=== PATIENT | female | born 1940 | race Caucasian/White ===

== ENCOUNTER 2016-09-24 09:25 | Day surgery (SDC) | payer MEDICARE, BC ==
[~2016-09-24 09:25] MED LIST: PROPOFOL INJ 200 MG/20 ML VIAL IV ONE
[2016-09-24 10:45] VITALS: BP 136/64
--- NOTE | 2016-09-24 12:28 | Operative Report ---
Operative Report DATE OF SURGERY: 09/24/16 Operative Report: The risks benefits and alternatives of the procedure explained to the patient in detail and informed consent is obtained that GIF Olympus video scope was inserted into the patient's mouth and hypopharynx the esophagus is identified intubated and insufflated the scope was then advanced through the esophagus stomach and duodenum retroflexion maneuver is done the esophagus stomach and first and second portions of the duodenum examined PREOPERATIVE DIAGNOSIS: Heme positive stool. Previous colonoscopy apparently negative POSTOPERATIVE DIAGNOSIS: Gastritis status post biopsy rule out Helicobacter pylori OPERATION: EGD with biopsy SURGEON: TONO RECIO ANESTHESIA: LMAC TISSUE REMOVED OR ALTERED: Gastric mucosal specimens obtained, rule out Helicobacter pylori COMPLICATIONS: None. ESTIMATED BLOOD LOSS: none. INTRAOPERATIVE FINDINGS: Esophagus normal. Gastric erosions/gastritis with some old heme present. Duodenal bulb normal no ulcer. First and second portion of the duodenum normal PROCEDURE: Patient tolerated the procedure well. No immediate postprocedure complications are noted. Patient is discharged in good condition. Discharge date 09/24/2016. Discharge diet: Regular. Discharge activity: Regular. 2-3 week follow-up to discuss findings. Patient is instructed to call the office or proceed to the emergency room should there be any further problems or questions. We'll await on biopsies.
== END 2016-09-24 10:35 | disposition home or self-care (01) ==
LOC: END 09:25
PROVIDERS: ATTEND Internal Medicine Gastroenterology
PROC: 0DB68ZX Excision of Stomach, Via Natural or Artificial Opening Endoscopic, Diagnostic (ICD-10-PCS; principal; 2016-09-24 11:30)
DX: K29.50 Unspecified chronic gastritis without bleeding (principal); K57.30 Diverticulosis of large intestine without perforation or abscess without bleeding; Z79.01 Long term (current) use of anticoagulants; Z79.82 Long term (current) use of aspirin; Z79.899 Other long term (current) drug therapy; Z79.51 Long term (current) use of inhaled steroids
CPT/HCPCS: 43239; 88342 ×2; 88305 ×2; J2704; 740

== ENCOUNTER 2017-02-18 06:52 | Day surgery (SDC) | payer MEDICARE, BC ==
[2017-02-18] MEDS ORDERED: PROPOFOL INJ 200 MG/20 ML VIAL IV ONE (07:19)
[2017-02-18 09:05] VITALS: BP 147/50
--- NOTE | 2017-02-18 13:00 | Operative Report ---
Operative Report DATE OF SURGERY: 02/18/17 Operative Report: The risks, benefits and alternatives of the procedure including risks of bleeding, perforation requiring surgery are explained to the patient in detail and informed consent was obtained. Patient was taken back to the endoscopy suite and placed in the left, lateral decubital position. Timeout was called. Propofol medications administered. A rectal examination was done which did not reveal any masses, tears or fissures. An Olympus videoscope was inserted into the patient's rectum. The scope was then carefully advanced all the way to the cecum. The cecum was identified by the usual anatomical landmarks including the ileocecal valve as well as the appendiceal office. Photodocumentation was obtained. The scope was then sequentially pulled back via the various segments of the colon including the ascending colon, hepatic flexure, transverse colon, splenic flexure, descending colon and finding to the rectosigmoid portions of the colon. Retroflexion maneuvers performed. PREOPERATIVE DIAGNOSIS: Colorectal cancer screening POSTOPERATIVE DIAGNOSIS: Colon polyp that was noted and removed via biopsy forceps. Diverticulosis. Internal hemorrhoids OPERATION: Colonoscopy with biopsy SURGEON: TONO RECIO ANESTHESIA: LMAC TISSUE REMOVED OR ALTERED: As described above. COMPLICATIONS: None. ESTIMATED BLOOD LOSS: None. INTRAOPERATIVE FINDINGS: As described above. PROCEDURE: Patient tolerated the procedure well. No immediate postprocedure complications are noted. Patient discharged in good condition. Discharge date 02/18/2017. Discharge diet: Regular. Discharge activity: Regular. 2-3 week follow-up to discuss findings. Patient is instructed to call the office or proceed to the emergency room should there be any further problems or questions. We will wait on pathology. 3-5 year surveillance colonoscopy depending on the pathology of the polyp.
== END 2017-02-18 08:50 | disposition home or self-care (01) ==
LOC: END 06:52
PROVIDERS: ATTEND Internal Medicine Gastroenterology
PROC: 0DBK8ZX Excision of Ascending Colon, Via Natural or Artificial Opening Endoscopic, Diagnostic (ICD-10-PCS; principal; 2017-02-18 08:00)
DX: Z12.11 Encounter for screening for malignant neoplasm of colon (principal); K57.30 Diverticulosis of large intestine without perforation or abscess without bleeding; K64.8 Other hemorrhoids; I20.9 Angina pectoris, unspecified; I11.0 Hypertensive heart disease with heart failure; I50.9 Heart failure, unspecified; J44.9 Chronic obstructive pulmonary disease, unspecified; M19.90 Unspecified osteoarthritis, unspecified site; I48.91 Unspecified atrial fibrillation; I25.2 Old myocardial infarction; Z85.828 Personal history of other malignant neoplasm of skin
CPT/HCPCS: 45380; 88305 ×2; J2704; 810

== ENCOUNTER → 2017-03-10 | Outpatient (CLI) | payer MEDICARE, BC | LOC: LAB 07:41 | PROVIDERS: ATTEND Ophthalmology | DX: D48.5 Neoplasm of uncertain behavior of skin (principal) | CPT/HCPCS: 88305 ==

== ENCOUNTER 2017-07-05 13:31 | Emergency (ER) | payer MEDICARE, BC ==
--- NOTE | 2017-07-05 14:06 | ER Document Report ---
ED Medical Screen (RME) - General Chief Complaint: Fall Stated Complaint: FALL/HEAD PAIN Time Seen by Provider: 07/05/17 14:03 Notes: 77-year-old female on Xarelto here status post fall 6 days ago. She states that she slipped on the ice and fell onto her left side. Initially she did not have any pain but several days later started to have a left-sided headache arm pain and hip pain along with bruising. She is here because she is afraid of possible brain bleed. She has been able to walk without difficulty. EXAM Ecchymosis of the distal left arm Ecchymosis of the superior lateral left thigh Mild soft tissue swelling and tenderness to palpation of the left lateral occipital scalp TRAVEL OUTSIDE OF THE [place] IN LAST 30 DAYS: No - Related Data Allergies/Adverse Reactions: adhesive [Adhesive] Allergy (Severe, Verified 07/05/17 13:32) ITCH, RASH Past Medical History - Social History Chew tobacco use (# tins/day): No Frequency of alcohol use: None Drug Abuse: None - Past Medical History Cardiac Medical History: Reports: Hx Hypertension Denies: Hx Congestive Heart Failure, Hx Coronary Artery Disease, Hx Heart Attack, Hx Heart Murmur Pulmonary Medical History: Reports: Hx Asthma Denies: Hx Bronchitis, Hx COPD, Hx Pneumonia, Hx Tuberculosis Neurological Medical History: Denies: Hx Cerebrovascular Accident, Hx Seizures Renal/ Medical History: Denies: Hx Peritoneal Dialysis GI Medical History: Denies: Hx Hepatitis, Hx Hiatal Hernia, Hx Ulcer Musculoskeltal Medical History: Reports Hx Arthritis - hand Infectious Medical History: Denies: Hx Hepatitis Past Surgical History: Reports: Hx Hysterectomy. Denies: Hx Mastectomy, Hx Open Heart Surgery, Hx Pacemaker - Immunizations Hx Diphtheria, Pertussis, Tetanus Vaccination: Yes Physical Exam - Vital signs Vitals: Temp Pulse Resp BP Pulse Ox 98.0 F 77 20 133/58 H 96 07/05/17 13:39 07/05/17 13:39 07/05/17 13:39 07/05/17 13:39 07/05/17 13:39 Course - Vital Signs Vital signs: Temp Pulse Resp BP Pulse Ox 98.0 F 77 20 133/58 H 96 07/05/17 13:39 07/05/17 13:39 07/05/17 13:39 07/05/17 13:39 07/05/17 13:39
--- NOTE | 2017-07-05 14:36 | RADIOLOGY REPORT (SQ) ---
EXAM DESCRIPTION: HIP LEFT AP/LATERAL COMPLETED DATE/TIME: 07/05/2017 2:28 pm REASON FOR STUDY: fall, superior lateral thigh pain COMPARISON: None. NUMBER OF VIEWS: Two views. TECHNIQUE: AP pelvis and additional frog-leg view of the left hip. LIMITATIONS: None. FINDINGS: MINERALIZATION: Normal. LEFT HIP: No fracture or dislocation. No lytic or blastic lesions. No joint space narrowing. Minim al acetabular rim bony spurring. RIGHT HIP: No fracture or dislocation. No lytic or blastic lesions. No joint space narrowing. Mini mal acetabular rim bony spurring. PUBIS AND ISCHIUM: No fracture. PELVIS: No fracture. SACRUM: No fracture or dislocation. No worrisome bone lesions. LOWER LUMBAR SPINE: L5-S1 facet arthropathy SOFT TISSUES: No findings. OTHER: No other significant finding. IMPRESSION: No acute fracture or malalignment TECHNICAL DOCUMENTATION: JOB ID: [id number] [employer]- All Rights Reserved
--- NOTE | 2017-07-05 14:39 | RADIOLOGY REPORT (SQ) ---
EXAM DESCRIPTION: CT HEAD WITHOUT COMPLETED DATE/TIME: 07/05/2017 2:30 pm REASON FOR STUDY: on xarelto, s/p fall COMPARISON: None. TECHNIQUE: Axial images acquired through the brain without intravenous contrast. Images reviewed wi th bone, brain and subdural windows. Images stored on PACS. All CT scanners at this facility use dose modulation, iterative reconstruction, and/or weight based d osing when appropriate to reduce radiation dose to as low as reasonably achievable (ALARA). [facility]: Dose Right [facility]: CareDose [facility]: Dose Right [facility]: Teradose 4D [facility]: Third Brigade RADIATION DOSE: 64.6 mGy. LIMITATIONS: None. FINDINGS: VENTRICLES: Normal size and contour. CEREBRUM: No masses. No hemorrhage. No midline shift. No evidence for acute infarction. Normal gra y/white matter differentiation. No areas of low density in the white matter. CEREBELLUM: No masses. No hemorrhage. No alteration of density. No evidence for acute infarction. EXTRAAXIAL SPACES: No fluid collections. No masses. ORBITS AND GLOBE: No intra- or extraconal masses. Normal contour of globe without masses. CALVARIUM: No fracture. PARANASAL SINUSES: No fluid or mucosal thickening. SOFT TISSUES: No mass or hematoma. OTHER: No other significant finding. IMPRESSION: NORMAL BRAIN CT WITHOUT CONTRAST. EVIDENCE OF ACUTE STROKE: NO. COMMENT: Quality ID # [id number]: Final reports with documentation of one or more dose reduction techniques (e.g., Automated exposure control, adjustment of the mA and/or kV according to patient size, use of iterative reconstruction technique) TECHNICAL DOCUMENTATION: JOB ID: [id number] [employer]- All Rights Reserved
--- NOTE | 2017-07-05 14:40 | RADIOLOGY REPORT (SQ) ---
EXAM DESCRIPTION: HUMERUS LEFT COMPLETED DATE/TIME: 07/05/2017 2:28 pm REASON FOR STUDY: fall, distal humerus pain COMPARISON: None. NUMBER OF VIEWS: Two views. TECHNIQUE: Two radiographic images were acquired of the left humerus to include elbow and shoulder i n at least one projection. LIMITATIONS: None. FINDINGS: MINERALIZATION: Normal. BONES: No acute fracture or dislocation. No worrisome bone lesions. SOFT TISSUES: No obvious swelling or foreign body. OTHER: No other significant finding. IMPRESSION: NEGATIVE STUDY OF THE LEFT HUMERUS. NO RADIOGRAPHIC EVIDENCE OF ACUTE INJURY. TECHNICAL DOCUMENTATION: JOB ID: [id number] [email or web address]- All Rights Reserved
--- NOTE | 2017-07-05 15:04 | ER Document Report ---
ED Fall - General Chief Complaint: Fall Stated Complaint: FALL/HEAD PAIN Time Seen by Provider: 07/05/17 14:03 Mode of Arrival: Ambulatory Information source: Patient Notes: Patient is a 77-year-old female on Julieta who presents to the ER today 6 days post fall on the ice from the snowstorm we had recently. Patient states that she fell outside in her driveway while she was trying to walk her dog, hurting her left hip, left arm and hitting her head. She did not lose consciousness, she denies any nausea or vomiting. She states that she has had a mild headache and some nosebleeds since falling which made her very nervous. states that she has been acting normally. She admits to a small amount of neck pain that began 3-4 Days ago. TRAVEL OUTSIDE OF THE [place] IN LAST 30 DAYS: No - Related data Allergies/Adverse Reactions: adhesive [Adhesive] Allergy (Severe, Verified 07/05/17 13:32) ITCH, RASH Past Medical History - General Information source: Patient - Social History Smoking Status: Never Smoker Chew tobacco use (# tins/day): No Frequency of alcohol use: None Drug Abuse: None Family History: Reviewed & Not Pertinent Patient has suicidal ideation: No Patient has homicidal ideation: No - Past Medical History Cardiac Medical History: Reports: Hx Hypertension Denies: Hx Congestive Heart Failure, Hx Coronary Artery Disease, Hx Heart Attack, Hx Heart Murmur Pulmonary Medical History: Reports: Hx Asthma Denies: Hx Bronchitis, Hx COPD, Hx Pneumonia, Hx Tuberculosis Neurological Medical History: Denies: Hx Cerebrovascular Accident, Hx Seizures Renal/ Medical History: Denies: Hx Peritoneal Dialysis GI Medical History: Denies: Hx Hepatitis, Hx Hiatal Hernia, Hx Ulcer Musculoskeltal Medical History: Reports Hx Arthritis - hand Infectious Medical History: Denies: Hx Hepatitis Past Surgical History: Reports: Hx Hysterectomy. Denies: Hx Mastectomy, Hx Open Heart Surgery, Hx Pacemaker - Immunizations Hx Diphtheria, Pertussis, Tetanus Vaccination: Yes Hx Pneumococcal Vaccination: 03/24/16 Review of Systems - Review of Systems Constitutional: No symptoms reported EENT: No symptoms reported Cardiovascular: No symptoms reported Respiratory: No symptoms reported Gastrointestinal: No symptoms reported Genitourinary: No symptoms reported Female Genitourinary: No symptoms reported Musculoskeletal: See HPI Skin: See HPI Hematologic/Lymphatic: No symptoms reported Neurological/Psychological: See HPI Physical Exam - Vital signs Vitals: Temp Pulse Resp BP Pulse Ox 98.0 F 77 20 133/58 H 96 07/05/17 13:39 07/05/17 13:39 07/05/17 13:39 07/05/17 13:39 07/05/17 13:39 - Notes Notes: PHYSICAL EXAMINATION: GENERAL: Well-appearing and in no acute distress. HEAD: Atraumatic, normocephalic. EYES: Pupils equal round and reactive to light, extraocular movements intact, sclera anicteric, conjunctiva are normal. NECK: Normal range of motion, supple without lymphadenopathy LUNGS: CTAB and equal. No wheezes rales or rhonchi. HEART: Regular rate and rhythm without murmurs ABDOMEN: Soft, no tenderness. No guarding, no rebound BACK: no vertebral tenderness, normal ROM GI/: no CVA tenderness EXTREMITIES: Tender to palpation over left lateral arm, proximal to the elbow, otherwise normal range of motion, no pitting edema. No cyanosis. NEUROLOGICAL: Cranial nerves grossly intact. Normal sensory/motor exams. Good and equal strength bilaterally, Kernig and Brudzinski's signs negative, Romberg' s test normal, normal heel to kruger testing PSYCH: Normal mood, normal affect. SKIN: Warm, Dry, normal turgor, ecchymosis noted to the left lateral arm proximal to the elbow, Course - Re-evaluation Re-evalutation: 07/05/17 18:08 Patient is neurologically intact. CT of the head, left humerus x-ray and left hip x-ray negative for any acute pathology. Patient will be sent home with small dose of a muscle relaxer for some neck pain she admits to. - Vital Signs Vital signs: Temp Pulse Resp BP Pulse Ox 98.1 F 71 20 123/52 L 94 07/05/17 15:45 07/05/17 15:45 07/05/17 15:45 07/05/17 15:45 07/05/17 15:45 Discharge - Discharge Clinical Impression: On anticoagulant therapy, Left arm pain, Left hip pain Fall Qualifiers: Encounter type: initial encounter Qualified Code(s): W19.XXXA - Unspecified fall, initial encounter Head injury Qualifiers: Encounter type: initial encounter Qualified Code(s): S09.90XA - Unspecified injury of head, initial encounter Condition: Stable Disposition: HOME, SELF-CARE Additional Instructions: Return immediately for any new or worsening symptoms. Follow up with primary care provider, call tomorrow to make followup appointment. Prescriptions: Cyclobenzaprine HCl [Flexeril 5 mg Tablet] 5 mg PO TID #15 tablet Referrals: ROSA M SWENSON MD [Primary Care Provider] - Follow up as needed
[2017-07-05 15:46] VITALS: BP 123/52
== END 2017-07-05 15:46 | disposition home or self-care (01) ==
LOC: ER 13:31
DX: S09.90XA Unspecified injury of head, initial encounter (principal); M79.602 Pain in left arm; M25.552 Pain in left hip; R51 Headache; M54.2 Cervicalgia; W00.0XXA Fall on same level due to ice and snow, initial encounter; Z79.01 Long term (current) use of anticoagulants
CPT/HCPCS: 70450; 99284

== ENCOUNTER 2017-09-06 10:38 | Inpatient (IN) | payer MEDICARE, BC ==
--- NOTE | 2017-09-06 11:08 | ER Document Report ---
ED Medical Screen (RME) - General Chief Complaint: Chest Pain Stated Complaint: CHEST PAIN Time Seen by Provider: 09/06/17 10:56 Mode of Arrival: Wheelchair Information source: Patient Notes: Patient is a 77-year-old female with a history of triple bypass surgery in September 2013 presents to the emergency department complaining of chest pain onset around 0330 this morning. Patient states that the pain is located midsternal that radiates into her back and left shoulder. Patient describes the pain as constant and achey. Patient also complains of diaphoresis and weakness. Patient denies dizziness or nausea. Patient currently takes Xarelto and states that she was unable to take any of her medications this morning GENERAL: Alert, interacts well. No acute distress. HEAD: Normocephalic, Atraumatic. HEART: Afib with RVR. ABDOMEN: Soft, non-tender. Non-distended. Bowel sounds present in all 4 quadrants. EXTREMITIES: Moves all four extremities spontaneously. 2+ radial pulses bilaterally. PSYCH: Normal affect, normal mood. I have greeted and performed a rapid initial assessment of this patient. A comprehensive ED assessment and evaluation of the patient, analysis of test results and completion of the medical decision making process will be conducted by additional ED providers. TRAVEL OUTSIDE OF THE [place] IN LAST 30 DAYS: No - Related Data Allergies/Adverse Reactions: adhesive [Adhesive] Allergy (Severe, Verified 09/06/17 10:43) ITCH, RASH Past Medical History - General Information source: Patient - Social History Chew tobacco use (# tins/day): No Frequency of alcohol use: None Drug Abuse: None - Past Medical History Cardiac Medical History: Reports: Hx Hypertension Denies: Hx Congestive Heart Failure, Hx Coronary Artery Disease, Hx Heart Attack, Hx Heart Murmur Pulmonary Medical History: Reports: Hx Asthma Musculoskeltal Medical History: Reports Hx Arthritis - hand Past Surgical History: Reports: Hx Hysterectomy - Immunizations Hx Diphtheria, Pertussis, Tetanus Vaccination: Yes Physical Exam - Vital signs Vitals: Temp Pulse Resp BP Pulse Ox 97.8 F 126 H 20 104/80 96 09/06/17 10:49 09/06/17 10:49 09/06/17 10:49 09/06/17 10:49 09/06/17 10:49 Course - Vital Signs Vital signs: Temp Pulse Resp BP Pulse Ox 97.8 F 126 H 20 135/82 H 96 09/06/17 10:49 09/06/17 10:49 09/06/17 10:49 09/06/17 11:07 09/06/17 10:49 Stacia Documentation - Scribe Written by Stacia:: Stacia Cat, 09/06/2017 11:09 acting as scribe for :: Nahid
[2017-09-06] MEDS ORDERED: DILTIAZEM HCL INJ 25 MG/5 ML VIAL IV ONE (11:44)
[2017-09-06] MEDS ORDERED: DILTIAZEM HCL/D5W 125 MG/125 ML RTUINJ IV PRN (11:44)
[2017-09-06 11:52] LABS: ABSOLUTE LYMPHOCYTES (AUTO) 1.6 10^3/uL (0.5-4.7); ABSOLUTE MONOCYTES (AUTO) 0.6 10^3/uL (0.1-1.4); ABSOLUTE NEUT (AUTO) 9.4 10^3/uL (1.7-8.2); BASOPHILS % (AUTO) 0.2 % (0-2); EOSINOPHILS % (AUTO) 0.2 % (0-6); HEMATOCRIT 42.4 % (36.0-47.0); LYMPHOCYTES % (AUTO) 13.6 % (13-45); MEAN CORPUSCULAR HEMOGLOBIN 27.7 pg (27.0-33.4); MEAN CORPUSCULAR HGB CONC 33.1 g/dL (32.0-36.0); MEAN CORPUSCULAR VOLUME 84 fl (80-97); PLATELET COUNT 264 10^3/uL (150-450); RED BLOOD COUNT 5.06 10^6/uL (3.72-5.28); RED CELL DISTRIBUTION WIDTH 15.6 % (11.5-14.0); TOTAL CELLS COUNTED % (AUTO) 100 %; WHITE BLOOD COUNT 11.7 10^3/uL (4.0-10.5)
[2017-09-06 12:01] LABS: INTERNATIONAL RATION (INR) 1.76; PROTHROMBIN TIME 21.5 SEC (11.4-15.4)
[2017-09-06 12:02] LABS: PARTIAL THROMBOPLASTIN TIME 46.8 SEC (23.5-35.8)
--- NOTE | 2017-09-06 12:15 | RADIOLOGY REPORT (SQ) ---
EXAM DESCRIPTION: CHEST SINGLE VIEW COMPLETED DATE/TIME: 09/06/2017 11:58 am REASON FOR STUDY: chest pain COMPARISON: CT 12/23/2014 radiograph 08/07/2013 EXAM PARAMETERS: NUMBER OF VIEWS: One view. TECHNIQUE: Single frontal radiographic view of the chest acquired. RADIATION DOSE: NA LIMITATIONS: None. FINDINGS: LUNGS AND PLEURA: No definite infiltrate is seen, but the left hemidiaphragm is indistinct . No infiltrate is seen on the lateral view. MEDIASTINUM AND HILAR STRUCTURES: No masses. Contour normal. HEART AND VASCULAR STRUCTURES: Heart normal in size. Normal vasculature. BONES: No acute findings. HARDWARE: Sternotomy wires. OTHER: No other significant finding. IMPRESSION: Cannot entirely exclude a limited infiltrate the left base. TECHNICAL DOCUMENTATION: JOB ID: [id number] [employer]- All Rights Reserved Reading location - IP/workstation name: [email or web address]
[2017-09-06 12:22] LABS: ALANINE AMINOTRANSFERASE 30 U/L (9-52); ALBUMIN 4.1 g/dL (3.5-5.0); ALKALINE PHOSPHATASE 68 U/L (38-126); ANION GAP 12 (5-19); ASPARTATE AMINO TRANSFERASE 19 U/L (14-36); BILIRUBIN,DIRECT 0.3 mg/dL (0.0-0.4); BILIRUBIN,TOTAL 0.5 mg/dL (0.2-1.3); BLOOD UREA NITROGEN 27 mg/dL (7-20); CALCIUM 9.9 mg/dL (8.4-10.2); CARBON DIOXIDE 27 mmol/L (22-30); CHLORIDE 101 mmol/L (98-107); GLUCOSE 178 mg/dL (75-110); POTASSIUM 4.7 mmol/L (3.6-5.0); TOTAL PROTEIN 7.1 g/dL (6.3-8.2)
[2017-09-06] MEDS ORDERED: DIGOXIN INJ 0.5 MG/2 ML AMPULE IV ONE (12:31)
[2017-09-06 12:34] LABS: NT PRO BNP 1280 pg/mL (<450); TROPONIN I < 0.012 ng/mL
--- NOTE | 2017-09-06 12:49 | ER Document Report ---
ED General - General Chief Complaint: Chest Pain Stated Complaint: CHEST PAIN Time Seen by Provider: 09/06/17 10:56 Mode of Arrival: Wheelchair Notes: Patient says she awakened about 3 AM to go to the bathroom. When she did so, she noticed that she was "hurting in my chest real bad". She felt very weak and sweaty. She noticed that her blood pressure was low and that her heart rate was going very fast. She also felt short of breath. She has a history of paroxysmal atrial fibrillation currently on metoprolol. She is also on Xarelto. Denies nausea or vomiting. No fever or chills. Had a headache earlier in the week but not currently. Patient had three-vessel CABG 2013. TRAVEL OUTSIDE OF THE [place] IN LAST 30 DAYS: No - Related Data Allergies/Adverse Reactions: adhesive [Adhesive] Allergy (Severe, Verified 09/06/17 10:43) ITCH, RASH Past Medical History - General Information source: Patient - Social History Smoking Status: Never Smoker Chew tobacco use (# tins/day): No Frequency of alcohol use: None Drug Abuse: None Family History: Reviewed & Not Pertinent Patient has suicidal ideation: No Patient has homicidal ideation: No - Past Medical History Cardiac Medical History: Reports: Hx Coronary Artery Disease, Hx Hypertension Denies: Hx Congestive Heart Failure, Hx Heart Attack, Hx Heart Murmur Pulmonary Medical History: Reports: Hx Asthma Endocrine Medical History: Reports: Hx Hypothyroidism Musculoskeltal Medical History: Reports Hx Arthritis - hand Past Surgical History: Reports: Hx Hysterectomy - Immunizations Hx Diphtheria, Pertussis, Tetanus Vaccination: Yes Hx Pneumococcal Vaccination: 03/24/16 Review of Systems - Review of Systems Notes: REVIEW OF SYSTEMS: CONSTITUTIONAL : Denies fever. EENT: Denies eye, ear, nose or mouth or throat pain or other symptoms. CARDIOVASCULAR: See HPI. RESPIRATORY: Denies cough, chest congestion, but some shortness of breath. GASTROINTESTINAL: Denies abdominal pain or nausea, vomiting, or diarrhea. GENITOURINARY: Denies difficulty or painful urinating, urinary frequency, blood in urine. MUSCULOSKELETAL: Denies back or neck pain. Denies joint pain or swelling. SKIN: Denies rash or skin lesions. NEUROLOGICAL: Denies LOC or altered mental status. Denies headache. Denies sensory loss or motor deficits. ALL OTHER SYSTEMS REVIEWED AND NEGATIVE. Physical Exam - Vital signs Vitals: Temp Pulse Resp BP Pulse Ox 97.8 F 126 H 20 104/80 96 09/06/17 10:49 09/06/17 10:49 09/06/17 10:49 09/06/17 10:49 09/06/17 10:49 Interpretation: Tachycardic - Notes Notes: PHYSICAL EXAMINATION: GENERAL: Well-appearing, in no acute distress. Anxious. HEAD: Atraumatic, normocephalic. EYES: Pupils equal round and reactive to light, extraocular movements intact. ENT: oropharynx clear without exudates. Moist mucous membranes. NECK: Normal range of motion, supple. LUNGS: Breath sounds clear and equal bilaterally. HEART: Irregularly irregular tachycardia at about 1 20/min. ABDOMEN: Soft, nontender. No guarding or rebound. No masses. BACK: No tenderness throughout entire back. EXTREMITIES: Normal range of motion without pain. NEUROLOGICAL: Normal speech, normal gait. Normal sensory, motor, and reflex exams. Awake, alert, and oriented x3. PSYCH: Normal mood, normal affect. SKIN: Warm, dry, no rashes. Course - Re-evaluation Re-evalutation: 09/06/17 17:14 Patient was given a bolus of Cardizem as well as a drip at 10 mg. Her heart rate began to slow down into the 100-110 area. She does not have any chest pain at this time. I gave a single dose of digoxin 0.25 mg IV. Patient's heart rate slowed down to below 100 and she was stable otherwise. Labs show no evidence of acute cardiac injury. Hospitalist contacted who will admit the patient for further care and management. - Vital Signs Vital signs: Temp Pulse Resp BP Pulse Ox 97.8 F 126 H 22 H 119/60 96 09/06/17 10:49 09/06/17 10:49 09/06/17 16:31 09/06/17 16:31 09/06/17 16:31 - Laboratory Result Diagrams: 09/06/17 11:36 09/06/17 11:36 Laboratory results interpreted by me: 09/06/17 09/06/17 09/06/17 11:36 11:36 11:36 WBC 11.7 H RDW 15.6 H Seg Neutrophils % 81.0 H Absolute Neutrophils 9.4 H PT APTT BUN 27 H Creatinine 1.28 H Est GFR ( Amer) 49 L Est GFR (Non-Af Amer) 40 L Glucose 178 H NT-Pro-B Natriuret Pep 1280 H 09/06/17 11:36 WBC RDW Seg Neutrophils % Absolute Neutrophils PT 21.5 H APTT 46.8 H BUN Creatinine Est GFR ( Amer) Est GFR (Non-Af Amer) Glucose NT-Pro-B Natriuret Pep - Diagnostic Test Radiology results interpreted by me: 09/06/17 17:13 Chest x-ray appears normal to me, although the radiologist does comment that there may be a small left lower lobe infiltrate. - EKG Interpretation by Me Rate: Tachycardia Rhythm: A.Fib Voltage: Consistant with LVH Critical Care Note - Critical Care Note Total time excluding time spent on procedures (mins): 45 Discharge - Discharge Clinical Impression: Atrial fibrillation with rapid ventricular response Condition: Stable Disposition: ADMITTED INPATIENT Admitting Provider: Hospitalist Unit Admitted: [facility], [place]
--- NOTE | 2017-09-06 13:04 | EKG REPORT ---
SEVERITY:- ABNORMAL ECG - ATRIAL FIBRILLATION LEFT ANTERIOR FASCICULAR BLOCK LVH WITH SECONDARY REPOLARIZATION ABNORMALITY : Confirmed by: Eladio Travis MD 06-Sep-2017 13:04:07
[2017-09-06] MEDS ORDERED: ONDANSETRON HCL INJ/PF 4 MG/2 ML SDV IV PRN (14:57)
[2017-09-06] MEDS ORDERED: IPRATROPIUM/ALBUTEROL 0.5-2.5 MG/3 ML AMPUL NEB PRN (14:57)
[2017-09-06] MEDS ORDERED: SPIRONOLACTONE 25 MG TABLET PO SCH (15:15)
[2017-09-06] MEDS ORDERED: LEVALBUTEROL HCL NEB 1.25 MG/3 ML AMPUL NEB PRN (15:21)
[2017-09-06] MEDS ORDERED: LEVOFLOXACIN 750 MG/D5W RTU 750 MG/150 ML RTUPB IV SCH (16:00)
[2017-09-06] MEDS ORDERED: DILTIAZEM HCL 60 MG TABLET PO ONE (16:00)
[2017-09-06] MEDS ORDERED: ASPIRIN 81 MG TABLET, CHEWABLE PO ONE ×2 (16:00→16:30)
[2017-09-06 16:11] LABS: FREE T4 (FREE THYROXINE) 1.48 ng/dL (0.78-2.19)
[2017-09-06 16:25] LABS: THYROID STIMULATING HORMONE 0.82 uIU/mL (0.47-4.68)
[2017-09-06] MEDS ORDERED: LEVOTHYROXINE SODIUM 0.088 MG TABLET PO ONE (16:30)
[2017-09-06] MEDS ORDERED: RIVAROXABAN 10 MG TABLET PO ONE (16:30)
[2017-09-06] MEDS ORDERED: FUROSEMIDE INJ/PF 40 MG/4 ML SDV IV ONE (16:30)
[2017-09-06 17:19] LABS: APPEARANCE,URINE CLEAR; BILIRUBIN,URINE NEGATIVE (NEGATIVE); COLOR,URINE STRAW; GLUCOSE, URINE NEGATIVE (NEGATIVE); KETONES,URINE NEGATIVE (NEGATIVE); LEUKOCYTE ESTERASE,URINE NEGATIVE (NEGATIVE); NITRITE,URINE NEGATIVE (NEGATIVE); PROTEIN,URINE NEGATIVE (NEGATIVE); URINE SPECIFIC GRAVITY 1.005; UROBILINOGEN,URINE NEGATIVE mg/dL (<2.0)
[2017-09-06] MEDS ORDERED: [UNRECOGNIZED DRUG - OTHER] PO SCH (18:00)
[2017-09-06] MEDS ORDERED: VIT D3 PO SCH (18:00)
--- NOTE | 2017-09-06 18:22 | XCELERA REPORT ---
[address] [address] Transthoracic Echocardiogram Report Name: PHILIP SMITH Age: 77 yrs Gender: Female : 1940 Patient Status: Inpatient Patient Location: [place] [address]^A Study Date: 09/06/2017 04:54 PM Height: 66 in Weight: 188 lb BSA: 1.9 m2 Procedure: A complete two-dimensional transthoracic echocardiogram was performed (2D, M-mode, spectral and color flow Doppler). The study was technically adequate with some images being suboptimal in quality. Reason For Study: evaluate heart function in afib with suzie VUONG Ordering Physician: JOSE JUAN GALAN Performed By: Heide Conroy Interpretation Summary The left ventricular ejection fraction is normal. Doppler measurements suggest pseudonormalized left ventricular relaxation, which is associated with grade II/IV or mild to moderate diastolic dysfunction The left ventricle is mildly dilated. The left ventricle is grossly normal size. Wall motion cannot be accurately commented on, but no definite regional wall motion abnormalities noted. The right ventricular systolic function is normal. The right atrium is normal in size The left atrial size is normal. There is a trace to mild amount of mitral regurgitation There is no mitral valve stenosis. There is a mild to moderate amount of aortic regurgitation There is no aortic valve stenosis There is a trace to mild amount of tricuspid regurgitation Right ventricular systolic pressure is at the upper limits of normal The aortic root is not well visualized but is probably normal size. The inferior vena cava appeared normal and decreased > 50% with respiration (RAP 5-10 mmHg) There is no pericardial effusion. MMode/2D Measurements & Calculations RVDd: 2.3 cm LVIDd: 3.0 cm FS: 39.1 % Ao root diam: 3.0 cm IVSd: 1.3 cm LVIDs: 1.8 cm EDV(Teich): 36.0 ml LVPWd: 1.3 cm ESV(Teich): 10.4 ml Ao root area: 6.9 cm2 EF(Teich): 71.1 % LA dimension: 2.9 cm Doppler Measurements & Calculations MV E max meño: MV P1/2t max meño: Ao V2 max: AI max meño: 102.2 cm/sec 101.7 cm/sec 139.6 cm/sec 443.9 cm/sec MV P1/2t: 68.0 msec Ao max PG: AI max P.8 mmHg 78.8 mmHg MVA(P1/2t): 3.2 cm2 AI dec slope: MV dec slope: 437.8 cm/sec2 205.8 cm/sec2 MV dec time: AI P1/2t: 0.22 sec 631.5 msec LV V1 max PG: PA V2 max: TR max meño: 6.5 mmHg 73.5 cm/sec 259.3 cm/sec LV V1 max: PA max P.2 mmHg TR max P.8 cm/sec 26.9 mmHg Left Ventricle The left ventricle is grossly normal size. The left ventricle is mildly dilated. The left ventricular ejection fraction is normal. Doppler measurements suggest pseudonormalized left ventricular relaxation, which is associated with grade II/IV or mild to moderate diastolic dysfunction. Wall motion cannot be accurately commented on, but no definite regional wall motion abnormalities noted. Right Ventricle The right ventricle is grossly normal size. There is normal right ventricular wall thickness. The right ventricular systolic function is normal. Atria The right atrium is normal in size. The left atrial size is normal. Interarterial septum not well visualized and not well dopplered. Cannot comment on ASD/PFO presence. Mitral Valve The mitral valve leaflets are sclerotic, but show no functional abnormalities. There is no mitral valve stenosis. There is a trace to mild amount of mitral regurgitation. Aortic Valve The aortic valve is not well visualized secondary to technical limitations. There is no aortic valve stenosis. There is a mild to moderate amount of aortic regurgitation. Tricuspid Valve The tricuspid valve is not well visualized, but is grossly normal. There is no tricuspid stenosis. There is a trace to mild amount of tricuspid regurgitation. Right ventricular systolic pressure is at the upper limits of normal. Pulmonic Valve The pulmonic valve is not well visualized. Great Vessels The aortic root is not well visualized but is probably normal size. The inferior vena cava appeared normal and decreased > 50% with respiration (RAP 5-10 mmHg). Effusions There is no pericardial effusion. : JOSE JUAN GALAN > Kareem Thompson
[2017-09-06] MEDS: ATORVASTATIN CALCIUM 10 MG TABLET PO SCH (18:50)
[2017-09-06] MEDS: BUDESONIDE/FORMOTEROL 160-4.5 MCG 60 PUFF/6 GM MDI IH SCH ×2 (18:59→21:32)
[2017-09-06] MEDS ORDERED: DILTIAZEM HCL INJ 25 MG/5 ML VIAL IV PRN (19:21)
--- NOTE | 2017-09-06 21:17 | PDOC CONSULTATION ---
Consultation Consult Date: 09/06/17 Attending physician:: JAMI MARIO Consult reason:: Atrial fibrillation with rapid ventricular response History of Present Illness Admission Date/PCP: 09/06/17 14:30 ROSA M SWENSON MD Patient complains of: Shortness of breath and chest pain History of Present Illness: PHILIP SMITH is a 77 year old female with a PMH of HLD, hypothyroidism, HTN, paroxsymal Afib, CAD s/p triple vessel bypass and COPD/restrictive lung disease described. Patient states that her heart began racing early this morning when she went to the bathroom. She denies missing any of her medicines or having any recent medication changes lately. She described chest discomfot, diaphoresis, and palpitations at the time. She states that she has occassional episodes of palpitations that last seconds, but this was unresolving. She states that her last episode lasting this long occured after her bypass operation. Patient describes being in contact with a family member with a recent diagnosis of possible PNA. She has a possible opacity in her left chest on the CXR, and a mildly elevated WBC. This history was reviewed and confirmed. Patient follows up with [facility]. She had bypass surgery in 2013 and since then did not have any significant cardiac problem until now. She does however give history of chronic atrial fibrillation since her bypass surgery. Past Medical History Cardiac Medical History: Reports: Atrial Fibrillation, Coronary Artery Disease, Hypertension Denies: Congestive Heart Failure, Myocardial Infarction, Heart Murmur Pulmonary Medical History: Reports: Asthma Endocrine Medical History: Reports: Hypothyroidism Musculoskeltal Medical History: Reports: Arthritis - hand Psychiatric Medical History: Denies: Depression Hematology: Denies: Anemia, Hemophilia, Sickle Cell Disease Past Surgical History Past Surgical History: Reports: Coronary Artery Bypass Graft - triple vessel bypass, Hysterectomy Denies: Amputation Social History Lives with: Spouse/Significant other Smoking Status: Never Smoker Frequency of Alcohol Use: None Hx Recreational Drug Use: No Hx Prescription Drug Abuse: No - Advance Directive Resuscitation Status: Full Code Family History Family History: Hypertension Parental Family History Reviewed: Yes Children Family History Reviewed: Yes Sibling(s) Family History Reviewed.: Yes - No family history of premature coronary artery disease or sudden cardiac in the immediate family member Medication/Allergy Home Medications: Albuterol Sulfate [Proair HFA Inhalation Aerosol 8.5 gm MDI] 2 puff IN Q4HP PRN 09/06/17 Ascorbic Acid [Vitamin C 500 mg Tablet] 500 mg PO DAILY 09/06/17 Aspirin [Aspirin EC] 81 mg PO DAILY 09/06/17 Atorvastatin Calcium [Lipitor 10 mg Tablet] 10 mg PO QHS 09/06/17 Benzonatate [Tessalon Perles 100 mg Capsule] 100 mg PO Q8 09/06/17 Budesonide/Formoterol Fumarate [Symbicort HFA 160-4.5 mcg Inhaler 6 gm] 2 puff IH Q12 09/06/17 Calcium Carbonate/Vitamin D3 [Calcium 600 + Vit D 400 Tablet] 1 tab PO BID 09/06 Fluticasone Propionate [Flonase Nasal [place] 50 Mcg/[place] 16 gm] 1 spray NASL DAILY 09/06/17 Furosemide [Lasix 20 mg Tablet] 20 mg PO DAILY 09/06/17 Isosorbide Mononitrate [Imdur 60 mg Tablet.er] 60 mg PO DAILY 09/06/17 Lansoprazole [Prevacid 30 mg Odt Tablet] 30 mg PO Q6AM 09/06/17 Levothyroxine Sodium [Synthroid 0.075 mg Tablet] 0.075 mg PO Q6AM 09/06/17 Metoprolol Tartrate [Lopressor 50 mg Tablet] 50 mg PO Q12 09/06/17 Mv,Jerson,Min/Iron/Folic Acid/Lut [Vitatrum Tablet] 1 tab PO DAILY 09/06/17 Rivaroxaban [Xarelto] 20 mg PO QPM 09/06/17 Thiamine HCl [Thiamine 100 mg Tablet] 100 mg PO DAILY 09/06/17 Diltiazem HCl [Cardizem 60 mg Tablet] 60 mg PO TID 30 Days #90 tablet 09/08/17 Allergies/Adverse Reactions: adhesive [Adhesive] Allergy (Severe, Verified 09/06/17 10:43) ITCH, RASH Review of Systems Review of Systems: Please see history of present illness and past medical history as wall. Constitutional: No fever or chills reported. Head : No recent chronic headaches, recent head injury. Eyes: No recent eye pain, diplopia, redness, discharge, acute visual changes. Ears: No recent chronic ear pain, acute hearing loss, ear discharge. Oral cavity: No recent ulcerations, bleeding, oral cavity discomfort. Neck: No recent acute neck pain reported. Hematologic: No recent easy bruising or bleeding or hematologic malignancy reported. Lymphatic: No recent lymphatic malignancy, chronic lymphadenopathy reported yet Cardiovascular system review: See history of present illness. Respiratory system review: No recent chronic cough, hemoptysis, blood clots in the lungs reported. Mild Shortness of breath on exertion Gastrointestinal system review: Negative for any recent acute or chronic abdominal pain, hematemesis, melena, recent change in bowel habits. Genitourinary system review: No recent acute or chronic hematuria, flank pain, UTI etc. reported. Skin system review: Negative for any recent abnormal bruising, no rash, no pruritus reported. Neurologic: No prior history of strokes, mini strokes, seizure disorder. Psychologic: No history of major psychosis or major depression reported. Musculoskeletal: Minor aches and pains reported. No acute joint swelling reported. Endocrine: No recent polyuria, polydipsia, recent heat or cold intolerance. Physical Exam Vital Signs: Temp Pulse Resp BP Pulse Ox 97.5 F 67 18 118/57 L 96 09/06/17 19:27 09/06/17 19:27 09/06/17 19:27 09/06/17 19:27 09/06/17 19:27 Intake & Output 09/05/17 09/06/17 09/07/17 06:59 06:59 06:59 Intake Total 210 Balance 210 Exam: GENERAL: well-nourished and in no acute distress. Alert and oriented x3 HEAD: Atraumatic, normocephalic. EYES: Pupils equal round and reactive to light, extraocular movements intact, sclera anicteric, conjunctiva are normal. ENT: TMs normal, nares patent, oropharynx clear without exudates. Moist mucous membranes. No oral ulcerations or bleeding gums noted NECK: supple without lymphadenopathy. Trachea is central. No cervical or axillary lymphadenopathy noted. Carotids are 2+, JVD WNL LUNGS: Respiration seems nonlabored, no significant accessory muscle action noted. Bibasilar fine crackles noted and few wheezes rales or rhonchi noted. No significant dullness noted on percussion. CHEST: Palpation of the chest wall shows no significant chest wall tenderness. No other significant abnormalities noted. HEART: [place] CLOCK SMITH, No PSH, 1/6 CAROLINE aortic area, 1/6 sorto systolic murmur mitral area, no rubs, no gallops. ABDOMEN: Soft, no significant tenderness appreciated, normoactive bowel sounds. No guarding, no rebound. No rigidity noted . No masses appreciated. EXTREMITIES: Pedal pulses are 1-2+, no calf tenderness noted. No clubbing or cyanosis.1+ pedal edema noted NEUROLOGICAL: Focused neurological exam showed no significant neurologic deficit. Normal speech, no focal weakness appreciated. PSYCH: Normal mood, normal affect. Judgment and insight within normal limits. SKIN: No significant ecchymosis, skin is noted to be warm. MUSCULOSKELETAL EXAM: No significant acute joint swelling noted. Results Laboratory Results: 09/06/17 16:55 Urine Color STRAW Urine Appearance CLEAR Urine pH 7.0 Ur Specific [place] 1.005 Urine Protein NEGATIVE Urine Glucose (UA) NEGATIVE Urine Ketones NEGATIVE Urine Blood NEGATIVE Urine Nitrite NEGATIVE Ur Leukocyte Esterase NEGATIVE Urine WBC (Auto) 0 Urine RBC (Auto) 1 09/06/17 19:12 Troponin I 0.021 EKG Comments: Twelve-lead EKG shows atrial fibrillation with rapid ventricular response and minor ST-T wave changes which are felt to be related to increased heart rate. Impressions: Chest X-Ray 09/06/17 10:50 IMPRESSION: Cannot entirely exclude a limited infiltrate the left base. Assessment & Plan - Diagnosis (1) Atrial fibrillation with rapid ventricular response Is this a current diagnosis for this admission?: Yes (2) Chest pain Qualifiers: Chest pain type: unspecified Qualified Code(s): R07.9 - Chest pain, unspecified Is this a current diagnosis for this admission?: Yes (3) Hyperlipidemia Qualifiers: Hyperlipidemia type: unspecified Qualified Code(s): E78.5 - Hyperlipidemia , unspecified Is this a current diagnosis for this admission?: Yes (4) Hypertension Qualifiers: Hypertension type: essential hypertension Qualified Code(s): I10 - Essential (primary) hypertension Is this a current diagnosis for this admission?: Yes (5) Congestive heart failure Qualifiers: Heart failure type: diastolic Heart failure chronicity: acute on chronic Qualified Code(s): I50.33 - Acute on chronic diastolic (congestive) heart failure Is this a current diagnosis for this admission?: Yes - Notes Notes: Patient presented with chest pain most likely precipitated by atrial fibrillation with rapid ventricular response. Patient claims to be compliant with medication. Patient currently on Xarelto which can be continued. At this point agree with rate control with Cardizem drip and bolus protocol. Patient's heart rate currently well controlled on this regimen. Chest pain: May consider a stress test prior to discharge. Coronary artery disease: Patient is status post CABG about 4years. Possibility of progression of graft or [place]ct[place] vessel disease is there. Optimize therapy for underlying CAD. Hyperlipidemia: Recommend statin therapy with LDL goal of less than 70. Hypertension: Blood pressure goal ideally should be 135/85 in CAD patient but in this elderly patient a more liberal goal of 140/90 is acceptable. CHF: Acute on chronic, diastolic. 2D echo was reviewed. Recommend diuretic therapy. Most likely precipitated by atrial fibrillation with rapid ventricular response. - Time Time Spent: 30 to 50 Minutes - CODE STATUS was discussed, patient remains full code. Surrogate decision-maker patient's . Multiple medical problems were addressed. More than 50% of the time spent coordinating care, discussing management plans with involved caregivers. Management plans discussed with involved personnels. Medical decision making was of moderate to high complexity , patient's has multiple comorbidities. Medications reviewed and adjusted accordingly: Yes
[2017-09-06] MEDS: METOPROLOL TARTRATE 50 MG TABLET PO SCH (21:33)
[2017-09-06] MEDS: DILTIAZEM HCL 60 MG TABLET PO SCH (21:33)
[2017-09-07] MEDS: DILTIAZEM HCL 60 MG TABLET PO SCH ×4 (03:57→20:48)
[2017-09-07] MEDS: LANSOPRAZOLE 30 MG TAB.RAP.DR PO SCH (05:28)
[2017-09-07] MEDS: LEVOTHYROXINE SODIUM 0.088 MG TABLET PO SCH (05:29)
[2017-09-07] MEDS: BUDESONIDE/FORMOTEROL 160-4.5 MCG 60 PUFF/6 GM MDI IH SCH ×3 (05:29→22:43)
--- NOTE | 2017-09-07 06:08 | PDOC H&P ---
History of Present Illness Admission Date/PCP: 09/06/17 14:30 Patient complains of: chest pain History of Present Illness: PHILIP SMITH is a 77 year old female with a PMH of HLD, hypothyroidism, HTN, paroxsymal Afib, CAD s/p triple vessel bypass and COPD/restrictive lung disease described. Patient states that her heart began racing early this morning when she went to the bathroom. She denies missing any of her medicines or having any recent medication changes lately. She described chest discomfot, diaphoresis, and palpitations at the time. She states that she has occassional episodes of palpitations that last seconds, but this was unresolving. She states that her last episode lasting this long occured after her bypass operation. Patient describes being in contact with a family member with a recent diagnosis of possible PNA. She has a possible opacity in her left chest on the CXR, and a mildly elevated WBC. Past Medical History Cardiac Medical History: Reports: Atrial Fibrillation, Hypertension Denies: Congestive Heart Failure, Coronary Artery Disease, Myocardial Infarction, Heart Murmur Pulmonary Medical History: Reports: Asthma Musculoskeltal Medical History: Reports: Arthritis - hand Hematology: Denies: Anemia, Hemophilia, Sickle Cell Disease Past Surgical History Past Surgical History: Reports: Coronary Artery Bypass Graft - triple vessel bypass, Hysterectomy Denies: Amputation Social History Lives with: Spouse/Significant other Smoking Status: Never Smoker Frequency of Alcohol Use: None Hx Recreational Drug Use: No Hx Prescription Drug Abuse: No Family History Family History: CVA - CVA in mother and father. Parental Family History Reviewed: Yes - cva in both mother and father Children Family History Reviewed: Unknown Sibling(s) Family History Reviewed.: Unknown Medication/Allergy Home Medications: Albuterol Sulfate [Proair HFA Inhalation Aerosol 8.5 gm MDI] 2 puff IN Q4HP PRN 09/06/17 Ascorbic Acid [Vitamin C 500 mg Tablet] 500 mg PO DAILY 09/06/17 Aspirin [Aspirin EC] 81 mg PO DAILY 09/06/17 Atorvastatin Calcium [Lipitor 10 mg Tablet] 10 mg PO QHS 09/06/17 Benzonatate [Tessalon Perles 100 mg Capsule] 100 mg PO Q8 09/06/17 Budesonide/Formoterol Fumarate [Symbicort HFA 160-4.5 mcg Inhaler 6 gm] 2 puff IH Q12 09/06/17 Calcium Carbonate/Vitamin D3 [Calcium 600 + Vit D 400 Tablet] 1 tab PO BID 09/06 Fluticasone Propionate [Flonase Nasal [place] 50 Mcg/[place] 16 gm] 1 spray NASL DAILY 09/06/17 Furosemide [Lasix 20 mg Tablet] 20 mg PO DAILY 09/06/17 Isosorbide Mononitrate [Imdur 60 mg Tablet.er] 60 mg PO DAILY 09/06/17 Lansoprazole [Prevacid 30 mg Odt Tablet] 30 mg PO Q6AM 09/06/17 Levothyroxine Sodium [Synthroid 0.075 mg Tablet] 0.075 mg PO Q6AM 09/06/17 Metoprolol Tartrate [Lopressor 50 mg Tablet] 50 mg PO Q12 09/06/17 Mv,Jerson,Min/Iron/Folic Acid/Lut [Vitatrum Tablet] 1 tab PO DAILY 09/06/17 Rivaroxaban [Xarelto] 20 mg PO QPM 09/06/17 Spironolactone [Aldactone 25 mg Tablet] 20 mg PO DAILY 09/06/17 Thiamine HCl [Thiamine 100 mg Tablet] 100 mg PO DAILY 09/06/17 Valsartan [Diovan 160 mg Tablet] 160 mg PO DAILY 09/06/17 Allergies/Adverse Reactions: adhesive [Adhesive] Allergy (Severe, Verified 09/06/17 10:43) ITCH, RASH Review of Systems Constitutional: ABSENT: fever(s), night sweats, weakness Eyes: ABSENT: visual disturbances Ears: ABSENT: hearing changes Nose, Mouth, and Throat: ABSENT: headache(s), mouth pain, sore throat Cardiovascular: PRESENT: chest pain, dyspnea on exertion, palpitations Respiratory: PRESENT: cough, dyspnea. ABSENT: hemoptysis Gastrointestinal: ABSENT: diarrhea, nausea, vomiting Musculoskeletal: ABSENT: deformity, joint swelling, muscle weakness Integumentary: PRESENT: diaphoresis. ABSENT: pruritus, rash Neurological: ABSENT: confusion, numbness, syncope Psychiatric: ABSENT: anxiety, depression Endocrine: ABSENT: cold intolerance, heat intolerance Hematologic/Lymphatic: ABSENT: easy bruising, lymphadenopathy Physical Exam Vital Signs: Temp Pulse Resp BP Pulse Ox 97.8 F 126 H 30 H 145/73 H 95 09/06/17 10:49 09/06/17 10:49 09/06/17 15:01 09/06/17 15:01 09/06/17 15:01 General appearance: PRESENT: no acute distress, obese Head exam: PRESENT: atraumatic, normocephalic Eye exam: PRESENT: EOMI, PERRLA. ABSENT: conjunctiva pale Mouth exam: PRESENT: moist, neck supple, tongue midline Teeth exam: ABSENT: dental caries Throat exam: ABSENT: tonsillar exudate, tonsillogmegaly Neck exam: ABSENT: JVD, tenderness, thyromegaly Respiratory exam: PRESENT: rales - on left side of her chest, tachypnea. ABSENT : accessory muscle use, rhonchi Cardiovascular exam: PRESENT: RRR, +S1, +S2. ABSENT: bradycardia, diastolic murmur, systolic murmur Pulses: PRESENT: normal radial pulses, normal dorsalis pedis pul GI/Abdominal exam: ABSENT: ascites, distended, mass, Dominguez's sign, normal bowel sounds Extremities exam: PRESENT: +1 edema. ABSENT: joint swelling Musculoskeletal exam: PRESENT: full ROM, normal inspection Neurological exam: PRESENT: alert, oriented to person, oriented to place, oriented to time Psychiatric exam: ABSENT: agitated, anxious, manic Focused psych exam: ABSENT: paranoid, pressured speech Skin exam: ABSENT: abrasion, dry, pallor Results Impressions: Chest X-Ray 09/06/17 10:50 IMPRESSION: Cannot entirely exclude a limited infiltrate the left base. Assessment & Plan - Diagnosis (1) Atrial fibrillation with rapid ventricular response Plan: On Diltiazem IV infusion. Start 60mg PO Diltiazem q6h. restart home metoprolol and Xarelto consult Cardiology. Trend troponins. no elevation in troponin at present. Monitor telemetry no ischemic changes on EKG. (2) Left lower lobe pneumonia Plan: blood cultures, start empiric Levaquin (3) Chest pain Qualifiers: Chest pain type: unspecified Qualified Code(s): R07.9 - Chest pain, unspecified Plan: trend troponins, check TTE, consult cardiology (4) Hypertension Qualifiers: Hypertension type: essential hypertension Qualified Code(s): I10 - Essential (primary) hypertension Plan: resume only non-nephrotoxic medications from home, and prn hydralazine with use parameters (5) Hypothyroidism Plan: check TSH and free T4. continue home synthroid (6) Hyperlipidemia Qualifiers: Hyperlipidemia type: unspecified Qualified Code(s): E78.5 - Hyperlipidemia , unspecified Plan: continue home medication (7) Pulmonary edema Plan: hold home diuretics, giving IV lasix
[2017-09-07 06:59] LABS: ABSOLUTE EOSINOPHILS # (AUTO) 0.1 10^3/uL (0.0-0.6); ABSOLUTE LYMPHOCYTES (AUTO) 2.3 10^3/uL (0.5-4.7); ABSOLUTE MONOCYTES (AUTO) 0.9 10^3/uL (0.1-1.4); ABSOLUTE NEUT (AUTO) 7.6 10^3/uL (1.7-8.2); BASOPHILS % (AUTO) 0.3 % (0-2); EOSINOPHILS % (AUTO) 0.6 % (0-6); HEMATOCRIT 39.3 % (36.0-47.0); HEMOGLOBIN 13.3 g/dL (12.0-15.5); MEAN CORPUSCULAR HEMOGLOBIN 27.9 pg (27.0-33.4); MEAN CORPUSCULAR HGB CONC 33.9 g/dL (32.0-36.0); MEAN CORPUSCULAR VOLUME 82 fl (80-97); MONOCYTES % (AUTO) 8.2 % (3-13); PLATELET COUNT 233 10^3/uL (150-450); RED BLOOD COUNT 4.77 10^6/uL (3.72-5.28); RED CELL DISTRIBUTION WIDTH 15.3 % (11.5-14.0); SEGMENTED NEUTROPHILS % (AUTO) 69.9 % (42-78); TOTAL CELLS COUNTED % (AUTO) 100 %; WHITE BLOOD COUNT 10.9 10^3/uL (4.0-10.5)
[2017-09-07 07:35] LABS: ANION GAP 10 (5-19); BLOOD UREA NITROGEN 27 mg/dL (7-20); CALCIUM 9.2 mg/dL (8.4-10.2); CARBON DIOXIDE 26 mmol/L (22-30); CHLORIDE 102 mmol/L (98-107); GLUCOSE 98 mg/dL (75-110); POTASSIUM 4.3 mmol/L (3.6-5.0); SODIUM 137.7 mmol/L (137-145)
[2017-09-07] MEDS: RIVAROXABAN 10 MG TABLET PO SCH (09:57)
[2017-09-07] MEDS: MULTIVITAMIN TABLET PO SCH (09:58)
[2017-09-07] MEDS: ASPIRIN 81 MG TABLET, CHEWABLE PO SCH (09:58)
[2017-09-07] MEDS: METOPROLOL TARTRATE 50 MG TABLET PO SCH ×2 (09:59→22:43)
[2017-09-07] MEDS ORDERED: VALSARTAN 160 MG TABLET PO SCH (10:00)
[2017-09-07] MEDS ORDERED: FUROSEMIDE INJ/PF 40 MG/4 ML SDV IV SCH (10:00)
--- NOTE | 2017-09-07 11:39 | PDOC PROGRESS REPORT ---
Subjective Progress Note for:: 09/07/17 Subjective:: The patient is a very healthy appearing 77-year-old female. She has a history of coronary artery disease and is status post coronary artery bypass grafting in 2013. She had atrial fibrillation which occurred postoperatively. She has not experienced atrial fibrillation since her open heart surgery. She now presents with atrial fibrillation with rapid ventricular response and a question of a left lower lobe pneumonia. She is feeling well this morning. She is converted back to sinus rhythm. All of her symptoms have resolved and she is asking to be discharged home. Reason For Visit: ATRIAL FIBRILLIATION WITH RAPID VENTRICULAR Physical Exam Vital Signs: Temp Pulse Resp BP Pulse Ox 97.7 F 67 18 111/48 L 96 09/07/17 07:07 09/07/17 11:19 09/07/17 11:19 09/07/17 07:07 09/07/17 11:19 Intake & Output 09/06/17 09/07/17 09/08/17 06:59 06:59 06:59 Intake Total 1127 Balance 1127 Weight 83.3 kg Additional comments: Again, the patient appears to be a very healthy female for her age. She has no cognitive defects noted. Her facial appearance is unremarkable. The patient's lungs are clear both anteriorly and posteriorly. She does have a grade 1/6 systolic ejection murmur which is heard loudest at the left lower sternal border /apex. The abdomen is obese but soft. Bowel sounds are noted. She does not have guarding or rebound and there are no hernias or masses present. She does not have lower extremity edema. The skin is clean, warm, dry and intact without lesions or rashes. Results Laboratory Results: 09/07/17 06:23 09/07/17 06:23 09/06/17 09/07/17 09/07/17 16:55 06:23 06:23 WBC 10.9 H RBC 4.77 Hgb 13.3 Hct 39.3 MCV 82 MCH 27.9 MCHC 33.9 RDW 15.3 H Plt Count 233 Seg Neutrophils % 69.9 Lymphocytes % 21.0 Monocytes % 8.2 Eosinophils % 0.6 Basophils % 0.3 Absolute Neutrophils 7.6 Absolute Lymphocytes 2.3 Absolute Monocytes 0.9 Absolute Eosinophils 0.1 Absolute Basophils 0.0 Sodium 137.7 Potassium 4.3 Chloride 102 Carbon Dioxide 26 Anion Gap 10 BUN 27 H Creatinine 1.20 Est GFR ( Amer) 53 L Est GFR (Non-Af Amer) 44 L Glucose 98 Calcium 9.2 Urine Color STRAW Urine Appearance CLEAR Urine pH 7.0 Ur Specific [place] 1.005 Urine Protein NEGATIVE Urine Glucose (UA) NEGATIVE Urine Ketones NEGATIVE Urine Blood NEGATIVE Urine Nitrite NEGATIVE Ur Leukocyte Esterase NEGATIVE Urine WBC (Auto) 0 Urine RBC (Auto) 1 09/06/17 09/07/17 19:12 01:15 Troponin I 0.021 0.018 Impressions: Chest X-Ray 09/06/17 10:50 IMPRESSION: Cannot entirely exclude a limited infiltrate the left base. Assessment & Plan - Diagnosis (1) Atrial fibrillation with rapid ventricular response Is this a current diagnosis for this admission?: Yes Plan: Patient is currently on both metoprolol and Cardizem. I am wondering if a higher dose of metoprolol may be better tolerated than 2 AV lenin blocking agents? Continue anticoagulation with Xarelto. (2) Chest pain Qualifiers: Chest pain type: unspecified Qualified Code(s): R07.9 - Chest pain, unspecified Is this a current diagnosis for this admission?: Yes Plan: See coronary artery disease discussion below. (3) Congestive heart failure Qualifiers: Heart failure type: diastolic Heart failure chronicity: acute on chronic Qualified Code(s): I50.33 - Acute on chronic diastolic (congestive) heart failure Is this a current diagnosis for this admission?: Yes Plan: Patient is currently receiving diuretic therapy. She appears euvolemic on exam. Therefore, I am going to stop her Lasix at this time. (4) Coronary artery disease Is this a current diagnosis for this admission?: Yes Plan: The patient has known coronary artery disease. The patient has been seen by cardiology. She is recommended for stress testing. This will be ordered. (5) Hyperlipidemia Qualifiers: Hyperlipidemia type: unspecified Qualified Code(s): E78.5 - Hyperlipidemia , unspecified Is this a current diagnosis for this admission?: Yes Plan: Continue low-dose atorvastatin. Patient is followed closely by cardiology. Therefore, it may be advisable to have her lipids followed up in the outpatient setting. I will check with cardiology. (6) Hypertension Qualifiers: Hypertension type: essential hypertension Qualified Code(s): I10 - Essential (primary) hypertension Is this a current diagnosis for this admission?: Yes Plan: With increase in AV lenin blockage and diuretic therapy. We need to monitor her blood pressure carefully. I appreciate recommendations left by Dr. Thompson. (7) Hypothyroidism Is this a current diagnosis for this admission?: Yes Plan: TSH and T4 are okay (8) Left lower lobe pneumonia Is this a current diagnosis for this admission?: Yes Plan: Clinically, the patient does not present with any evidence of pneumonia. I am going to order a 2 view chest x-ray for today. According to the notes, the patient was empirically started on Levaquin. This has been discontinued. - Time Time Spent with patient: 25-34 minutes - Inpatient Certification Medical Necessity: Need Close Monitoring Due to Risk of Patient Decompensation, Need For Continuous Telemetry Monitoring, Risk of Complication if Not Cared For in Hospital, Risk of Diagnosis Which Will Require Inpatient Eval/Care/Monitoring
--- NOTE | 2017-09-07 14:34 | RADIOLOGY REPORT (SQ) ---
EXAM DESCRIPTION: CHEST PA/LAT COMPLETED DATE/TIME: 09/07/2017 12:15 pm REASON FOR STUDY: PNA COMPARISON: 08/07/2013 EXAM PARAMETERS: NUMBER OF VIEWS: two views TECHNIQUE: Digital Frontal and Lateral radiographic views of the chest acquired. RADIATION DOSE: NA LIMITATIONS: none FINDINGS: LUNGS AND PLEURA: Scattered subcentimeter calcified granulomas. No effusions. MEDIASTINUM AND HILAR STRUCTURES: No masses or contour abnormalities. HEART AND VASCULAR STRUCTURES: Stable heart size. BONES: No acute findings. HARDWARE: CABG. OTHER: No other significant finding. IMPRESSION: NO ACUTE RADIOGRAPHIC FINDING IN THE CHEST. TECHNICAL DOCUMENTATION: JOB ID: [id number] [employer]- All Rights Reserved Reading location - IP/workstation name: [email or web address]
[2017-09-07] MEDS: ATORVASTATIN CALCIUM 10 MG TABLET PO SCH (17:53)
[2017-09-08] MEDS: DILTIAZEM HCL 60 MG TABLET PO SCH ×2 (02:45→10:21)
[2017-09-08] MEDS: LANSOPRAZOLE 30 MG TAB.RAP.DR PO SCH (05:32)
[2017-09-08] MEDS: LEVOTHYROXINE SODIUM 0.088 MG TABLET PO SCH (05:32)
[2017-09-08] MEDS: MULTIVITAMIN TABLET PO SCH (10:20)
[2017-09-08] MEDS: RIVAROXABAN 10 MG TABLET PO SCH (10:20)
[2017-09-08] MEDS: METOPROLOL TARTRATE 50 MG TABLET PO SCH (10:21)
[2017-09-08] MEDS: ASPIRIN 81 MG TABLET, CHEWABLE PO SCH (10:21)
[2017-09-08] MEDS: BUDESONIDE/FORMOTEROL 160-4.5 MCG 60 PUFF/6 GM MDI IH SCH (10:22)
--- NOTE | 2017-09-08 12:28 | PDOC DISCHARGE SUMMARY ---
General - Admit/Disc Date/PCP Admission Date/Primary Care Provider: 09/06/17 14:30 ROSA M SWENSON MD; Thiago Persaud MD; Jl Cordova MD. Discharge Date: 09/08/17 - Discharge Diagnosis (1) Atrial fibrillation with rapid ventricular response Is this a current diagnosis for this admission?: Yes (2) Chest pain Is this a current diagnosis for this admission?: Yes (3) Congestive heart failure Is this a current diagnosis for this admission?: Yes (4) Coronary artery disease Is this a current diagnosis for this admission?: Yes (5) Hyperlipidemia Is this a current diagnosis for this admission?: Yes (6) Hypertension Is this a current diagnosis for this admission?: Yes (7) Hypothyroidism Is this a current diagnosis for this admission?: Yes (8) Left lower lobe pneumonia Is this a current diagnosis for this admission?: Yes - Additional Information Resuscitation Status: Full Code Discharge Diet: Cardiac Discharge Activity: Balance Activity w/Rest Prescriptions: Diltiazem HCl [Cardizem 60 mg Tablet] 60 mg PO TID 30 Days #90 tablet Home Medications: Albuterol Sulfate [Proair HFA Inhalation Aerosol 8.5 gm MDI] 2 puff IN Q4HP PRN 09/06/17 Ascorbic Acid [Vitamin C 500 mg Tablet] 500 mg PO DAILY 09/06/17 Aspirin [Aspirin EC] 81 mg PO DAILY 09/06/17 Atorvastatin Calcium [Lipitor 10 mg Tablet] 10 mg PO QHS 09/06/17 Benzonatate [Tessalon Perles 100 mg Capsule] 100 mg PO Q8 09/06/17 Budesonide/Formoterol Fumarate [Symbicort HFA 160-4.5 mcg Inhaler 6 gm] 2 puff IH Q12 09/06/17 Calcium Carbonate/Vitamin D3 [Calcium 600 + Vit D 400 Tablet] 1 tab PO BID 09/06 Fluticasone Propionate [Flonase Nasal [place] 50 Mcg/[place] 16 gm] 1 spray NASL DAILY 09/06/17 Furosemide [Lasix 20 mg Tablet] 20 mg PO DAILY 09/06/17 Isosorbide Mononitrate [Imdur 60 mg Tablet.er] 60 mg PO DAILY 09/06/17 Lansoprazole [Prevacid 30 mg Odt Tablet] 30 mg PO Q6AM 09/06/17 Levothyroxine Sodium [Synthroid 0.075 mg Tablet] 0.075 mg PO Q6AM 09/06/17 Metoprolol Tartrate [Lopressor 50 mg Tablet] 50 mg PO Q12 09/06/17 Mv,Jerson,Min/Iron/Folic Acid/Lut [Vitatrum Tablet] 1 tab PO DAILY 09/06/17 Rivaroxaban [Xarelto] 20 mg PO QPM 09/06/17 Thiamine HCl [Thiamine 100 mg Tablet] 100 mg PO DAILY 09/06/17 Diltiazem HCl [Cardizem 60 mg Tablet] 60 mg PO TID 30 Days #90 tablet 09/08/17 History of Present Illness History of Present Illness: PHILIP SMITH is a 77 year old female with a PMH of HLD, hypothyroidism, HTN, paroxsymal Afib, CAD s/p triple vessel bypass and COPD/restrictive lung disease described. Patient states that her heart began racing early this morning when she went to the bathroom. She denies missing any of her medicines or having any recent medication changes lately. She described chest discomfot, diaphoresis, and palpitations at the time. She states that she has occassional episodes of palpitations that last seconds, but this was unresolving. She states that her last episode lasting this long occured after her bypass operation. Patient describes being in contact with a family member with a recent diagnosis of possible PNA. She has a possible opacity in her left chest on the CXR, and a mildly elevated WBC. Hospital Course Hospital Course: The patient was admitted to the hospital with atrial fibrillation with rapid ventricular response. On the night of admission she was started on a Cardizem drip. She converted to sinus rhythm. The next day she was converted to oral Cardizem 60 mg every 6 hours. Her metoprolol 50 mg daily was continued. Her blood pressures have been borderline. Therefore, her Aldactone, Lasix and valsartan were held during this hospitalization. Please note that only her Lasix has been resumed on discharge. The patient's blood pressures were in the low range upon discharge at 110/60. In addition, her heart rate is ranging from 52-60 in sinus rhythm. Therefore, upon discharge her Cardizem dose will be 60 mg p.o. 3 times daily. The patient had normal thyroid function studies during this hospitalization. Therefore, her Synthroid dose was not adjusted. The patient had unremarkable troponins during this hospitalization. Therefore, she will be discharged to follow-up with her programmer at [facility] who is currently aware of her admission. Upon admission, there is a question of pneumonia. However, the patient's clinical history was not consistent with pneumonia. A 2 view chest x-ray on the morning after admission excluded pneumonia. She did have a mildly elevated white blood cell count of 10.9. Physical Exam Vital Signs: Temp Pulse Resp BP Pulse Ox 97.8 F 60 16 103/88 H 97 09/08/17 07:12 09/08/17 07:12 09/08/17 07:12 09/08/17 07:12 09/08/17 07:12 Intake & Output 09/07/17 09/08/17 09/09/17 06:59 06:59 06:59 Intake Total 1127 1629 Balance 1127 1629 Weight 83.3 kg 82.1 kg Additional comments: The patient is an extremely delightful elderly female. She appears to be her stated age or younger. In general, I would say that she appears to be in very good health. Her cognition and mentation are excellent. Her facial appearance is unremarkable. At this time her lungs are clear to auscultation bilaterally both anteriorly and posteriorly. She does have a grade 1/6 systolic ejection murmur which is heard loudest at the apex but the murmur is somewhat intermittent. The patient's abdominal exam is benign. The abdomen is soft. Bowel sounds are present. She does not have guarding or rebound and there are no hernias or masses noted. The lower extremities are without any edema. The skin is clean, warm, dry and intact. Results Laboratory Results: 09/07/17 06:23 09/07/17 06:23 09/06/17 09/07/17 19:12 01:15 Troponin I 0.021 0.018 Impressions: Chest X-Ray 09/07/17 00:00 IMPRESSION: NO ACUTE RADIOGRAPHIC FINDING IN THE CHEST. Qualifiers - * PATEINT BEING DISCHARGED WITH ANY OF THE FOLLOWING DIAGNOSIS?: No Plan Discharge Plan: 1 discharge to home 2 discharge diet is cardiac 3 follow-up at the [facility] heart center this week Time Spent: Less than 30 Minutes
[2017-09-08 12:42] VITALS: BP 124/58
== END 2017-09-08 13:45 | disposition home or self-care (01) | DRG 308 ==
LOC: ER 10:38 → EH 14:30 → 3S 17:46
PROVIDERS: ADMIT Family Medicine; ATTEND Family Medicine
PROC: 3E0F73Z Introduction of Anti-inflammatory into Respiratory Tract, Via Natural or Artificial Opening (ICD-10-PCS; principal; 2017-09-06)
DX: I48.0 Paroxysmal atrial fibrillation (principal); I50.33 Acute on chronic diastolic (congestive) heart failure; J44.9 Chronic obstructive pulmonary disease, unspecified; Z95.1 Presence of aortocoronary bypass graft; I11.0 Hypertensive heart disease with heart failure; I25.10 Atherosclerotic heart disease of native coronary artery without angina pectoris; E78.5 Hyperlipidemia, unspecified; E03.9 Hypothyroidism, unspecified; M19.049 Primary osteoarthritis, unspecified hand; Z79.01 Long term (current) use of anticoagulants; Z79.82 Long term (current) use of aspirin; Z79.899 Other long term (current) drug therapy; Z90.710 Acquired absence of both cervix and uterus; Z82.49 Family history of ischemic heart disease and other diseases of the circulatory system; Z82.3 Family history of stroke
CPT/HCPCS: 36415; 71045; 71046; 80048; 80053; 81001; 83735; 83880; 84439; 84443; 84484; 85025; 85610; 85730; 93005; 93010; 93306; 96365; 96366; 96375; 99291; J1160; J1940; J3490

== ENCOUNTER → 2018-07-10 | Day surgery (SDC) | payer MEDICARE, BC ==
[~2018-07-10] MED LIST changes: +LIDOCAINE 2% JELLY 5 ML TUBE ONE; -PROPOFOL INJ 200 MG/20 ML VIAL IV ONE
== END ==
LOC: END 07:09
PROVIDERS: ATTEND Internal Medicine Pulmonary Disease
DX: K21.9 Gastro-esophageal reflux disease without esophagitis (principal)
CPT/HCPCS: 91010

== ENCOUNTER → 2018-08-01 | Outpatient (CLI) | payer MEDICARE, BC ==
[2018-08-01 11:53] LABS: ABSOLUTE EOSINOPHILS # (AUTO) 0.1 10^3/uL (0.0-0.6); ABSOLUTE LYMPHOCYTES (AUTO) 2.2 10^3/uL (0.5-4.7); ABSOLUTE MONOCYTES (AUTO) 0.8 10^3/uL (0.1-1.4); ABSOLUTE NEUT (AUTO) 6.6 10^3/uL (1.7-8.2); BASOPHILS % (AUTO) 0.3 % (0-2); HEMATOCRIT 42.9 % (36.0-47.0); HEMOGLOBIN 14.4 g/dL (12.0-15.5); LYMPHOCYTES % (AUTO) 22.5 % (13-45); MEAN CORPUSCULAR HEMOGLOBIN 28.2 pg (27.0-33.4); MEAN CORPUSCULAR HGB CONC 33.6 g/dL (32.0-36.0); MEAN CORPUSCULAR VOLUME 84 fl (80-97); MONOCYTES % (AUTO) 8.4 % (3-13); PLATELET COUNT 244 10^3/uL (150-450); RED BLOOD COUNT 5.11 10^6/uL (3.72-5.28); SEGMENTED NEUTROPHILS % (AUTO) 67.8 % (42-78); TOTAL CELLS COUNTED % (AUTO) 100 %; WHITE BLOOD COUNT 9.7 10^3/uL (4.0-10.5)
[2018-08-01 12:17] LABS: ALANINE AMINOTRANSFERASE 18 U/L (9-52); ALBUMIN 4.1 g/dL (3.5-5.0); ALKALINE PHOSPHATASE 84 U/L (38-126); ANION GAP 8 (5-19); ASPARTATE AMINO TRANSFERASE 22 U/L (14-36); BILIRUBIN,DIRECT 0.2 mg/dL (0.0-0.4); BILIRUBIN,TOTAL 0.7 mg/dL (0.2-1.3); BLOOD UREA NITROGEN 23 mg/dL (7-20); CARBON DIOXIDE 30 mmol/L (22-30); CHLORIDE 106 mmol/L (98-107); CHOLESTEROL 126.79 mg/dL (0-200); GLUCOSE 95 mg/dL (75-110); SODIUM 143.7 mmol/L (137-145); TOTAL PROTEIN 6.8 g/dL (6.3-8.2); TRIGLYCERIDES 86 mg/dL (<150)
[2018-08-01 12:30] LABS: DIRECT LDL 80 mg/dL (<100)
[2018-08-01 12:36] LABS: FREE T4 (FREE THYROXINE) 1.22 ng/dL (0.78-2.19)
[2018-08-01 12:49] LABS: THYROID STIMULATING HORMONE 0.58 uIU/mL (0.47-4.68)
== END ==
LOC: OD 10:59
PROVIDERS: ATTEND Internal Medicine
DX: I10 Essential (primary) hypertension (principal); E03.9 Hypothyroidism, unspecified; I25.10 Atherosclerotic heart disease of native coronary artery without angina pectoris; E78.5 Hyperlipidemia, unspecified; I48.0 Paroxysmal atrial fibrillation
CPT/HCPCS: 36415; 80053; 80061; 84439; 84443; 85025

== ENCOUNTER 2019-01-25 12:11 | Emergency (ER) | payer MEDICARE, BC ==
--- NOTE | 2019-01-25 13:05 | ER Document Report ---
ED Head/Face/Scalp Injury - General Chief Complaint: Head Injury Stated Complaint: POSSIBLE HEAD INJURY Time Seen by Provider: 01/25/19 12:55 Mode of Arrival: Ambulatory Information source: Patient TRAVEL OUTSIDE OF THE [place] IN LAST 30 DAYS: No - HPI Patient complains to provider of: Pain - pt. is on xarelto and was hit in the head by flagpole at [employer] earlier this am. No LOC but did feel "dazed." Feels better now. - Related Data Allergies/Adverse Reactions: adhesive [Adhesive] Allergy (Severe, Verified 01/25/19 12:12) ITCH, RASH Past Medical History - General Information source: Patient - Social History Smoking Status: Unknown if Ever Smoked Family History: Hypertension - Past Medical History Cardiac Medical History: Reports: Hx Atrial Fibrillation, Hx Coronary Artery Disease, Hx Hypertension Denies: Hx Congestive Heart Failure, Hx Heart Attack, Hx Heart Murmur Pulmonary Medical History: Reports: Hx Asthma Endocrine Medical History: Reports: Hx Hypothyroidism Renal/ Medical History: Denies: Hx Peritoneal Dialysis Musculoskeletal Medical History: Reports Hx Arthritis - hand Psychiatric Medical History: Denies: Hx Depression Past Surgical History: Reports: Hx Coronary Artery Bypass Graft - triple vessel bypass, Hx Hysterectomy - Immunizations Hx Diphtheria, Pertussis, Tetanus Vaccination: Yes Hx Pneumococcal Vaccination: 03/24/16 Review of Systems - Review of Systems Constitutional: No symptoms reported EENT: No symptoms reported Cardiovascular: No symptoms reported Respiratory: No symptoms reported Gastrointestinal: No symptoms reported Musculoskeletal: No symptoms reported Neurological/Psychological: No symptoms reported -: Yes All other systems reviewed and negative Physical Exam - Vital signs Vitals: Temp Pulse Resp BP Pulse Ox 98.0 F 71 17 154/52 H 93 01/25/19 12:20 01/25/19 12:20 01/25/19 12:20 01/25/19 12:20 01/25/19 12:20 - General General appearance: Appears well In distress: None - HEENT Head: Normocephalic, Atraumatic - there is min. TTP of the R temporal area of the skull. No abrasions, lacerations Eyes: Normal Pupils: PERRL Mouth/Lips: Normal Mucous membranes: Normal Pharynx: Normal Neck: Normal - Respiratory Respiratory status: No respiratory distress Breath sounds: Normal - Cardiovascular Rhythm: Regular Heart sounds: Normal auscultation Murmur: No - Abdominal Inspection: Normal Tenderness: Nontender - Extremities General upper extremity: Normal inspection General lower extremity: Normal inspection - Neurological Neuro grossly intact: Yes Cognition: Normal Orientation: AAOx4 Speech: Normal Cranial nerves: Normal Motor strength normal: LUE, RUE, LLE, RLE Additional motor exam normals: Equal leasing professional Sensory: Normal Course - Re-evaluation Re-evalutation: 01/25/19 13:43 pt felt well at time of d/c -- expressed desire to go home with - Vital Signs Vital signs: Temp Pulse Resp BP Pulse Ox 98.0 F 71 17 154/52 H 93 01/25/19 12:20 01/25/19 12:20 01/25/19 12:20 01/25/19 12:20 01/25/19 12:20 - Diagnostic Test Radiology reviewed: Reports reviewed - neg CT Discharge - Discharge Clinical Impression: Head injury due to trauma Qualifiers: Encounter type: initial encounter Qualified Code(s): S09.90XA - Unspecified injury of head, initial encounter Condition: Stable Disposition: HOME, SELF-CARE Additional Instructions: rest , continue current meds, return if worse Referrals: ERIC BARCENAS MD [COMMUNITY BASED STAFF] - Follow up as needed
--- NOTE | 2019-01-25 13:22 | RADIOLOGY REPORT (SQ) ---
EXAM DESCRIPTION: CT HEAD WITHOUT COMPLETED DATE/TIME: 01/25/2019 12:58 pm REASON FOR STUDY: head injury, on blood thinners. Dr. Godoy COMPARISON: 07/05/2017 TECHNIQUE: Axial images acquired through the brain without intravenous contrast. Images reviewed wit h bone, brain and subdural windows. Images stored on PACS. All CT scanners at this facility use dose modulation, iterative reconstruction, and/or weight based d osing when appropriate to reduce radiation dose to as low as reasonably achievable (ALARA). [facility]: Dose Right [facility]: CareDose [facility]: Dose Right [facility]: Teradose 4D [facility]: Smart TrendPo RADIATION DOSE: CT Rad equipment meets quality standard of care and radiation dose reduction techniq ues were employed. CTDIvol: 53.2 mGy. DLP: 1124 mGy-cm.. LIMITATIONS: None. FINDINGS: VENTRICLES: Normal size and contour. CEREBRUM: No masses. No hemorrhage. No midline shift. Age appropriate white matter. No evidence for a cute infarction. CEREBELLUM: No masses. No hemorrhage. No alteration of density. No evidence for acute infarction. EXTRA-AXIAL SPACES: No fluid collections. ORBITS AND GLOBE: No intra- or extraconal masses. Normal contour of globe without masses. CALVARIUM: No fracture. PARANASAL SINUSES: No fluid or mucosal thickening. SOFT TISSUES: No mass or hematoma. OTHER: No other significant finding. IMPRESSION: NO ACUTE INTRACRANIAL FINDINGS. EVIDENCE OF ACUTE STROKE: NO. TECHNICAL DOCUMENTATION: JOB ID: [id number] Quality ID # [id number]: Final reports with documentation of one or more dose reduction techniques (e.g., Au tomated exposure control, adjustment of the mA and/or kV according to patient size, use of iterative reconstruction technique) 2010 [employer]- All Rights Reserved Reading location - IP/workstation name: [email or web address]
[2019-01-25 13:52] VITALS: BP 132/60
== END 2019-01-25 14:01 | disposition home or self-care (01) ==
LOC: ER 12:11
DX: S09.90XA Unspecified injury of head, initial encounter (principal); W22.8XXA Striking against or struck by other objects, initial encounter; Y92.22 Religious institution as the place of occurrence of the external cause; I25.10 Atherosclerotic heart disease of native coronary artery without angina pectoris; I10 Essential (primary) hypertension; J45.909 Unspecified asthma, uncomplicated; I48.91 Unspecified atrial fibrillation; Z79.02 Long term (current) use of antithrombotics/antiplatelets; Z91.048 Other nonmedicinal substance allergy status; Z95.1 Presence of aortocoronary bypass graft
CPT/HCPCS: 70450; 99283

== ENCOUNTER → 2019-12-23 | Outpatient (CLI) | payer MEDICARE, BC ==
[2019-12-23 11:58] LABS: ABSOLUTE EOSINOPHILS # (AUTO) 0.1 10^3/uL (0.0-0.6); ABSOLUTE LYMPHOCYTES (AUTO) 1.6 10^3/uL (0.5-4.7); ABSOLUTE MONOCYTES (AUTO) 0.8 10^3/uL (0.1-1.4); ABSOLUTE NEUT (AUTO) 6.8 10^3/uL (1.7-8.2); BASOPHILS % (AUTO) 0.3 % (0-2); EOSINOPHILS % (AUTO) 0.8 % (0-6); HEMATOCRIT 42.8 % (36.0-47.0); HEMOGLOBIN 14.3 g/dL (12.0-15.5); LYMPHOCYTES % (AUTO) 17.1 % (13-45); MEAN CORPUSCULAR HEMOGLOBIN 27.8 pg (27.0-33.4); MEAN CORPUSCULAR HGB CONC 33.3 g/dL (32.0-36.0); MEAN CORPUSCULAR VOLUME 84 fl (80-97); MONOCYTES % (AUTO) 8.2 % (3-13); PLATELET COUNT 234 10^3/uL (150-450); RED BLOOD COUNT 5.13 10^6/uL (3.72-5.28); RED CELL DISTRIBUTION WIDTH 15.5 % (11.5-14.0); SEGMENTED NEUTROPHILS % (AUTO) 73.6 % (42-78); TOTAL CELLS COUNTED % (AUTO) 100 %; WHITE BLOOD COUNT 9.3 10^3/uL (4.0-10.5)
[2019-12-23 12:16] LABS: ALKALINE PHOSPHATASE 88 U/L (38-126); ANION GAP 6 (5-19); ASPARTATE AMINO TRANSFERASE 25 U/L (14-36); BILIRUBIN,TOTAL 0.8 mg/dL (0.2-1.3); BLOOD UREA NITROGEN 22 mg/dL (7-20); CALCIUM 10.1 mg/dL (8.4-10.2); CARBON DIOXIDE 30 mmol/L (22-30); CHLORIDE 104 mmol/L (98-107); CHOLESTEROL 130.63 mg/dL (0-200); GLUCOSE 102 mg/dL (75-110); POTASSIUM 4.6 mmol/L (3.6-5.0); TOTAL PROTEIN 7.2 g/dL (6.3-8.2); TRIGLYCERIDES 78 mg/dL (<150)
[2019-12-23 12:26] LABS: DIRECT LDL 86 mg/dL (<100)
[2019-12-23 12:31] LABS: FREE T4 (FREE THYROXINE) 1.15 ng/dL (0.78-2.19)
[2019-12-23 12:45] LABS: THYROID STIMULATING HORMONE 0.23 uIU/mL (0.47-4.68)
== END ==
LOC: OD 10:18
PROVIDERS: ATTEND Internal Medicine
DX: Z00.00 Encounter for general adult medical examination without abnormal findings (principal); E03.9 Hypothyroidism, unspecified; I25.10 Atherosclerotic heart disease of native coronary artery without angina pectoris; I10 Essential (primary) hypertension; E78.00 Pure hypercholesterolemia, unspecified; J44.9 Chronic obstructive pulmonary disease, unspecified; Z95.5 Presence of coronary angioplasty implant and graft; Z79.899 Other long term (current) drug therapy
CPT/HCPCS: 36415; 80053; 80061; 84439; 84443; 85025

== ENCOUNTER 2020-05-24 05:56 | Day surgery (SDC) | payer MEDICARE, BC ==
[~2020-05-24 05:56] MED LIST changes: +DOXYCYCLINE HYCLATE 100 MG in DEXTROSE 5%-WATER 250 ML IV PRN; -LIDOCAINE 2% JELLY 5 ML TUBE ONE
[2020-05-24] MEDS ORDERED: FENTANYL CITRATE INJ/PF 100 MCG/2 ML AMPUL ONE (06:39)
[2020-05-24] MEDS ORDERED: MIDAZOLAM 2 MG/2 ML INJ ONE (06:39)
[2020-05-24] MEDS ORDERED: LIDOCAINE 2% INJ (20 MG/ML) 20 ML MDV ONE (06:40)
[2020-05-24] MEDS ORDERED: EPHEDRINE SULFATE INJ 50 MG/1 ML AMPULE ONE (06:40)
[2020-05-24] MEDS ORDERED: PROPOFOL INJ 200 MG/20 ML VIAL IV ONE ×2 (06:40→10:46)
[2020-05-24] MEDS ORDERED: ONDANSETRON HCL INJ/PF 4 MG/2 ML SDV ONE (06:40)
[2020-05-24 06:43] LABS: ABSOLUTE EOSINOPHILS # (AUTO) 0.1 10^3/uL (0.0-0.6); ABSOLUTE LYMPHOCYTES (AUTO) 1.6 10^3/uL (0.5-4.7); ABSOLUTE MONOCYTES (AUTO) 0.8 10^3/uL (0.1-1.4); ABSOLUTE NEUT (AUTO) 7.4 10^3/uL (1.7-8.2); BASOPHILS % (AUTO) 0.3 % (0-2); EOSINOPHILS % (AUTO) 0.8 % (0-6); HEMATOCRIT 40.6 % (36.0-47.0); HEMOGLOBIN 13.6 g/dL (12.0-15.5); LYMPHOCYTES % (AUTO) 16.5 % (13-45); MEAN CORPUSCULAR HEMOGLOBIN 27.7 pg (27.0-33.4); MEAN CORPUSCULAR HGB CONC 33.4 g/dL (32.0-36.0); MEAN CORPUSCULAR VOLUME 83 fl (80-97); MONOCYTES % (AUTO) 7.9 % (3-13); PLATELET COUNT 223 10^3/uL (150-450); RED BLOOD COUNT 4.89 10^6/uL (3.72-5.28); RED CELL DISTRIBUTION WIDTH 14.9 % (11.5-14.0); SEGMENTED NEUTROPHILS % (AUTO) 74.5 % (42-78); TOTAL CELLS COUNTED % (AUTO) 100 %; WHITE BLOOD COUNT 9.9 10^3/uL (4.0-10.5)
[2020-05-24 07:02] LABS: INTERNATIONAL RATION (INR) 1.05; PROTHROMBIN TIME 13.9 SEC (11.4-15.4)
[2020-05-24 07:03] LABS: PARTIAL THROMBOPLASTIN TIME 30.5 SEC (23.5-35.8)
[2020-05-24 07:05] LABS: ANION GAP 9 (5-19); BLOOD UREA NITROGEN 22 mg/dL (7-20); CALCIUM 9.8 mg/dL (8.4-10.2); CARBON DIOXIDE 30 mmol/L (22-30); CHLORIDE 100 mmol/L (98-107); GLUCOSE 105 mg/dL (75-110); POTASSIUM 4.3 mmol/L (3.6-5.0)
[2020-05-24] MEDS ORDERED: BACITRACIN ZINC OINTMENT 15 GM ONE (07:37)
[2020-05-24] MEDS ORDERED: LIDOCAINE 1%/EPINEPHRINE INJ 20 ML VIAL ONE (07:38)
[2020-05-24] MEDS ORDERED: SODIUM BICARBONATE 8.4% INJ 50 MEQ/50 ML DISP.SYRIN ONE (07:38)
[2020-05-24] MEDS ORDERED: POVIDONE-IODINE 5% OPH PREP SOLN 30 ML ONE (07:38)
[2020-05-24] MEDS ORDERED: SODIUM BICARBONATE 4.2% INJ (2.5 MEQ/5 ML) VIAL ONE (07:41)
[2020-05-24] MEDS ORDERED: FENTANYL CITRATE INJ/PF 100 MCG/2 ML AMPUL IV PRN ×3 (08:48)
[2020-05-24] MEDS ORDERED: DIPHENHYDRAMINE HCL 50 MG/ML VIAL IV PRN (08:48)
[2020-05-24] MEDS ORDERED: ONDANSETRON HCL INJ/PF 4 MG/2 ML SDV IV PRN (08:48)
[2020-05-24] MEDS ORDERED: PROMETHAZINE HCL INJ 25 MG/1 ML VIAL IV PRN ×2 (08:48)
--- NOTE | 2020-05-24 10:00 | EKG REPORT ---
SEVERITY:- ABNORMAL ECG - SINUS RHYTHM ATRIAL PREMATURE COMPLEX LEFT ANTERIOR FASCICULAR BLOCK LEFT VENTRICULAR HYPERTROPHY : Confirmed by: Brandon Petit MD 24-May-2020 09:59:48
[2020-05-24] MEDS ORDERED: BALANCED SALT IRRIG SOLN COMB2 15 ML BOTTLE ONE (10:21)
--- NOTE | 2020-05-24 10:43 | Operative Report ---
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 Bolus tie-over dressing was placed. SURGEON: FABI SHANE ANESTHESIA: LMAC TISSUE REMOVED OR ALTERED: Basal squamous cell carcinoma COMPLICATIONS: None ESTIMATED BLOOD LOSS: Minimal PROCEDURE: The patient was brought into the operating room. The patient was laid on the operating room table in a supine position. The patient was prepped and draped in a sterile and aseptic fashion. After a timeout we then went ahead and marked the area on the left lower eyelid/base of nose to be resected. The 12:00 margin the dorsum of the nose. The 3:00 margin the medial canthus. The 6:00 margin the zygoma. The 9:00 margin the upper lip. Then went ahead and anesthetize the area with 1% lidocaine with epinephrine. Then went ahead and excise the area. Stitch was placed at 12:00 and it was sent for frozen section. Frozen section results came back that the deep and lateral margins were clear. We irrigated the wound with Betadine sterile water to lyse any remaining cancer cells. We then went ahead and decided that because of the size of the defect we will proceed with a skin graft. Different possible flap reconstructions were considered but this would distort the nose and the alar rim. Also this would cause some tension on the medial canthus and the lower eyelid. Patient also had a previous reconstruction on the lower eyelid cheek area which hindered movement of the tissue. Patient also had a recent procedure on her [employer] with a large cheek flap. This left no tension and no mobility to reconstruct this area other than using a graft. We decided to harvest the graft from the left clavicular area. We then went ahead and harvest the full-thickness graft. We closed the area with 4-0 Vicryl sutures and the skin was then closed with 3-0 PDS with knots being tied on the outside. At the end of the case skin glue was applied with a light pressure dressing. Graft was then defatted to the appropriate size and placed into the area of defect. It was then sutured into place with 5-0 Prolene sutures leaving one end long. After all the sutures were placed we then went ahead and applied Xeroform. Then went ahead and created a bolus dressing and tied each suture 180 from each other. Then tied the sutures again to each other. Petroleum jelly was applied. 2 x 2's were applied and tincture benzoin and the dressing was taped into place. At the end of the case the patient was doing well and brought to the [facility] for recovery The approximate size of the lesion was 2.2 cm. This dictation was performed using [employer] naturally speaking. If there are any inconsistencies please contact the dictating surgeon. Subjective: No complaints Objective: Vital signs stable afebrile No bleeding Dressing intact Assessment and plan: Doing well. Elevate the operative site. Resume medications. Take antibiotics for 1 day Follow-up Full instructions were given to the patient and family and they understand Portions of this note may be dictated using [employer] voice recognition software. Occasional variations and spelling and vocabulary could be possible and are unintentional. Additionally, there is a chance that some errors may not be caught or corrected. Please notify the offer of any discrepancies noted or if any statements are unclear.
--- NOTE | 2020-05-24 10:58 | Discharge Summary ---
Discharge Summary (SDC) - Discharge Final Diagnosis: Basal squamous carcinoma of the left lower eyelid base of nose Date of Surgery: 05/24/20 Condition: Good Treatment or Instructions: It is okay to remove the clavicular dressing on the chest in 2 days. There will be glue keeping the wound closed. This can be clean once a day with some peroxide. Do not touch the nasal dressing. Antibiotics for 1 day, then discontinue. Elevate operative area to decrease swelling. Do not strain, or lift heavy objects. Call for excessive bleeding, increased temperature of 101, uncontrolled pain, or excessive nausea or vomiting. You may reach Dr. Ruiz through his office at [phone]. In the event of an emergency after hours, then contact Dr. Ruiz through [facility]. Return to the office for a postop check on . The time will be scheduled by the nursing staff of [facility] prior to discharge. Please give the patient a copy of their labs and EKG so they can bring this to their PMD. Thank you Portions of this note may be dictated using [email or web address] voice recognition software. Occasional variations and spelling and vocabulary could be possible and are unintentional. Additionally, there is a chance that some errors may not be caught or corrected. Please notify the offer of any discrepancies noted or if any statements are unclear. Referrals: ROSA M SWENSON MD [Primary Care Provider] - Discharge Diet: As Tolerated Discharge Activity: No Lifting/Push/Pulling Report the Following to Your Physician Immediately: Unusual Bleeding - Keep head elevated. No bending or straining. Leave the nasal dressing in place. If you feel you are getting a reaction to the tape then this will have to be removed. For the clavicular area leave the top dressing on for about 2 days. If you feel like you are getting a reaction to the tape it ca
[2020-05-24 12:34] VITALS: BP 128/57
== END 2020-05-24 12:20 | disposition home or self-care (01) ==
LOC: OROUT 05:56
PROVIDERS: ATTEND Plastic Surgery
DX: C44.1292 Squamous cell carcinoma of skin of left lower eyelid, including canthus (principal); C44.321 Squamous cell carcinoma of skin of nose; Z79.899 Other long term (current) drug therapy; Z79.01 Long term (current) use of anticoagulants; Z20.828 Contact with and (suspected) exposure to other viral communicable diseases; Z85.820 Personal history of malignant melanoma of skin; Z86.03 Personal history of neoplasm of uncertain behavior; Z86.018 Personal history of other benign neoplasm; R01.1 Cardiac murmur, unspecified; E07.9 Disorder of thyroid, unspecified; J44.9 Chronic obstructive pulmonary disease, unspecified; K21.9 Gastro-esophageal reflux disease without esophagitis; I25.10 Atherosclerotic heart disease of native coronary artery without angina pectoris; Z95.1 Presence of aortocoronary bypass graft; Z79.890 Hormone replacement therapy
CPT/HCPCS: 11643; 11642; 15260; 36415; 85025; 85610; 85730; 80048; 88305 ×2; 88331 ×2; 93005; 93010; 00300; U0003; J2250; J3490 ×5; J2405; J7060; J2704; C9803; 300; 87635; J3010